=== PATIENT | female | born 1955 | race Caucasian/White ===

== ENCOUNTER → 2020-04-18 13:48 | Outpatient (BNVA) | payer MEDICARE, SELFPAY | PROVIDERS: Family Provider Registered Nurse; Visit Provider Registered Nurse | DX: N39.0 Urinary tract infection, site not specified (principal); M48.061 Spinal stenosis, lumbar region without neurogenic claudication | CPT/HCPCS: 81000 ==

== ENCOUNTER → 2020-06-12 22:17 | Outpatient (BNVA) | payer MEDICARE, SELFPAY | PROVIDERS: Family Provider Registered Nurse; Visit Provider Registered Nurse | DX: I10 Essential (primary) hypertension (principal); E78.5 Hyperlipidemia, unspecified | CPT/HCPCS: 81000 ==

== ENCOUNTER → 2020-06-13 09:20 | Outpatient (BNVA) | payer MEDICARE, SELFPAY | PROVIDERS: Family Provider Registered Nurse; Visit Provider Registered Nurse | DX: I10 Essential (primary) hypertension (principal); E78.5 Hyperlipidemia, unspecified | CPT/HCPCS: 80061; 85025 ==

== ENCOUNTER 2020-08-11 07:06 | Outpatient (CLI) | payer MEDICARE, SELFPAY ==
--- NOTE | 2020-08-11 07:25 | ECG_ITS ---
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 Interpretive Statements NAME OF STUDY: EXERCISE SESTAMIBI STRESS TEST INDICATION: Chest Pain Baseline blood pressure of 168/73 mm Hg, heart rate of 60 beats per minute and oxygen saturation 99%. EKG showed normal sinus rhythm, normal axis with nonspecific ST-T wave changes. Artifact noted The patient exercised for 6 minutes on a standard Irwin protocol. Patient attained a maximum heart rate of 139 beats per minute(90% of the maximum predicted heart rate) with a blood pressure at the peak exercise of 201/101 mm Hg. The EKG at the peak exercise is uninterpretable due to significant artifact. Patient did not have any chest pain or any significant arrhythmis with the exercise. Study was terminated due to fatigue During the recovery phase, there were no new changes. Blood pressure law to 235/66 mmHg early in recovery. Blood pressure at the end of the recovery phase was 151/64 mm Hg with a heart rate of 68 per minute and oxygen saturation 97%. CONCLUSION: 1. Uninterpretable EKG to treadmill exercise due to significant artifact. 2. No exercise-induced chest pain or cardiac arrhythmia 3. Exercise tolerance, attained a maximum of 7 METs. Maximum VO2 of 24.5 mL/kg/min. 4. Baseline hypertension with normal response to exercise. 5. Perfusion scan will be documented separately. Electronically Signed On 08-13-2020 10:32:21 CDT by Ana Laura Mcginnis M.D. [id number]
--- NOTE | 2020-08-11 07:26 | NMCV_ITS ---
NM vincenzo perf SPECT r/s* [id number] Vi Patterson Age: 65 Gender: F : 1955 Exam Date: 08/11/2020 08:32 Ordering Phys: Ana Laura Mcginnis MD ([email or web address]) Technologist: DAY Pena Exam Location: [facility] Indications: SHORTNESS OF BREATH STRESS TEST Please [facility] IMAGE PROTOCOL Rest/Stress 1 Exercise Day Radiopharmaceutical Dose (mCi) Administration Site Administered by Rest: Tc-99m 10.8 IV DAY You Sestamibi Stress:Tc-99m 32.6 IV DAY You Sestamibi Rest: 11-Aug-2020 60 Discovery 630 Stress: 11-Aug-2020 15 Discovery 630 Radiopharmaceutical was injected at 85 % maximum heart rate. Images obtained in supine and prone position. SPECT RESULTS Technical Quality: Excellent Raw Data Analysis: Normal Image Corrections: No attenuation or motion correction applied Summed Stress Score: 4 Summed Rest Score: 3 Summed Difference Score: 2 PERFUSION FINDINGS Small size perfusion abnormality of mild severity of apical septal, apical inferior and apical john on rest and supine stress images. There was improved tracer uptake on prone stress images. This is suggestive of attenuation artifact. FUNCTIONAL RESULTS (calculated via Gated SPECT) Stress Image LV EF (%): 67 Stress EDV (mL):101 TID: 0.94 Stress ESV (mL):33 FUNCTIONAL FINDINGS: The left ventricle is normal in size. Transient Ischemia Dilatation of 0.94. There is normal left ventricular systolic function. The left ventricular ejection fraction is normal with a value of 67%. There is normal left ventricular wall thickening. Normal end-diastolic and end-systolic volume. IMPRESSIONS 1. Myocardial perfusion imaging is normal. Attenuation artifact noted in apical inferior and apical septal john. 2. Overall left ventricular systolic function is normal without regional wall motion abnormalities. 3. The left ventricular ejection fraction is normal with a value of 67%. 4. No coronary ischemia based on the study. 5. EKG portion of the study would be reported separately. Ana Laura Mcginnis MD (Electronically Signed) Final Date: 13 August 2020 17:41 S
[2020-08-11 07:27] VITALS: BMI 26.6
[2020-08-11 09:57] VITALS: BP 151/64; PULSE 69
== END 2020-08-11 07:07 | disposition home or self-care (01) ==
PROVIDERS: PCP Registered Nurse; Visit Provider Internal Medicine Cardiovascular Disease
DX: R06.02 Shortness of breath (principal); R07.9 Chest pain, unspecified
CPT/HCPCS: 78452; 93017; A9500

== ENCOUNTER → 2020-08-19 10:02 | Outpatient (BNVA) | payer MEDICARE, SELFPAY | PROVIDERS: Family Provider Registered Nurse; PCP Registered Nurse; Visit Provider Psychiatry & Neurology Psychiatry | DX: F33.2 Major depressive disorder, recurrent severe without psychotic features (principal) | CPT/HCPCS: 90792 ==

== ENCOUNTER → 2020-09-18 11:37 | Outpatient (BNVA) | payer MEDICARE, SELFPAY | PROVIDERS: Family Provider Registered Nurse; PCP Registered Nurse; Visit Provider Psychiatry & Neurology Psychiatry | DX: F33.1 Major depressive disorder, recurrent, moderate (principal) | CPT/HCPCS: 99214 ==

== ENCOUNTER → 2020-09-23 11:48 | Outpatient (BNVA) | payer MEDICARE, SELFPAY | PROVIDERS: Family Provider Registered Nurse; PCP Registered Nurse; Visit Provider Internal Medicine Cardiovascular Disease | DX: I10 Essential (primary) hypertension (principal); E78.5 Hyperlipidemia, unspecified | CPT/HCPCS: 80053; 80061; 83721 ==

== ENCOUNTER → 2020-10-06 11:40 | Outpatient (BNVA) | payer MEDICARE, SELFPAY | PROVIDERS: Family Provider Registered Nurse; PCP Registered Nurse; Visit Provider Registered Nurse | DX: R30.0 Dysuria (principal) | CPT/HCPCS: 80053; 81000 ==

== ENCOUNTER 2020-11-17 16:29 | Emergency (ER) | payer MEDICARE, SELFPAY ==
[2020-11-17 17:08] VITALS: BP 152/72; PULSE 73; RESP 14; TEMP 37; O2SAT 97; BMI 26.6
--- NOTE | 2020-11-17 17:47 | W.ED.EXTPRO ---
HPI - Extremity Problem General: Chief complaint: Extremity Problem,Nontraumatic Stated complaint: SCIATIC PAIN Time Seen by Provider: 11/17/20 17:39 Source: patient Mode of arrival: ambulatory Limitations: no limitations History of Present Illness: HPI Narrative: 65-year-old female patient presents to the emergency department with right side sciatica pain. She reports symptoms similar to that she has experienced in the past. She reports radiculopathy symptoms. Denies weakness of the right lower extremity. States has completed physical therapy in the past along with neurosurgical consult. Was advised she would need surgery but is trying to hold off as long as she can. She is requesting a steroid injection today to help with pain. Has appointment with her primary care next week for follow-up. Onset (ago): day(s) (2-3) Pain Consistency: intermittent Location: right and lower extremity Quality: burning, aching and dull Radiation: distal Relieving factors: medication (Gabapentin) and rest Exacerbating factors: weight bearing, walking and exertion Associated symptoms: Reports no associated symptoms; Deny chest pain, fever(s) or rash Review of Systems General: Reports: 10 or more systems reviewed and unremarkable except in HPI and below Const: Denies: fever(s), chills or diaphoresis Eyes: Denies: blurry vision or eye redness ENMT: Denies: throat pain, dental pain or disequilibrium Card: Denies: chest pain, palpitations or irregular heart rhythm Resp: Denies: dyspnea, productive cough, non-productive cough or wheezing GI: Denies: abdominal pain, nausea or vomiting : Denies: difficulty voiding or dysuria Musc: Reports: back pain and extremity pain (radiculopathy RLE); Denies: neck pain, joint pain, joint warmth, muscle cramps or muscle weakness Skin/Breast: Denies: rash or pruritus Neuro: Denies: headache(s), weakness in extremities or behavioral changes Psych: Denies: anxiety or depression Alvin/Lymph: Denies: easy bruising [facility] ED PFSH: Medical History (Updated 11/17/20 @ 17:51 by ADIS Mccarthy) Anxiety disorder, unspecified Essential hypertension Intervertebral disc disorder with radiculopathy of lumbosacral region MDD (major depressive disorder) Surgical History History of arthroscopy of right shoulder Family History Other CAD (coronary artery disease) Myocardial infarction Social History Smoking and tobacco status: never smoked Second hand smoke exposure: Yes Alcohol intake: never Adopted: No Caregiver/support person: No Lives independently: Yes Marital status: Sexually active: Yes Current gender identity: Female Physical Exam Const: COMMON NORMALS: no acute distress, patient oriented x3, healthy appearing and alert GENERAL APPEARANCE: cooperative, comfortable and well hydrated HENMT: COMMON NORMALS: normocephalic, Normal external nose present and moist oral mucous membranes HEAD & SCALP: normocephalic NOSE: Normal external nose present Eye: COMMON NORMALS: Equal, round and reactive pupils present and EOMs intact bilaterally GENERAL EYE: appearance normal, both eyes and all related structures PUPIL: Yes Equal, round and reactive pupils present Neck/C-Spine: COMMON NORMALS: full ROM, no lymphadenopathy and no meningeal signs GENERAL: Yes normal visual inspection and Yes trachea midline CERVICAL SPINE: Yes cervical ROM normal Lymph: LYMPHATIC: no lymphadenopathy noted Chest: COMMONS NORMALS: normal inspection of the chest Resp: COMMON NORMALS: normal respiratory effort and clear to auscultation bilaterally AUSCULTATION: clear to auscultation bilaterally Cardio: COMMON NORMALS: regular rhythm, S1 normal heart sound present and S2 normal heart sound present RHYTHM: regular rhythm HEART SOUNDS: S1 normal heart sound present and S2 normal heart sound present GI: COMMON NORMALS: Soft to palpation and non-tender INSPECTION: Yes normal to inspection PALPATION: Yes Soft to palpation : COMMON NORMALS: Yes no CVA tenderness BLADDER/KIDNEY EXAM: Yes no CVA tenderness Back/Pelvis: COMMON NORMALS: no CVA tenderness, thoracic and lumbar spine normal to inspection and no thoracic nor lumbar tenderness THORACIC SPINE/UPPER BACK: Yes normal to inspection and Yes thoracic ROM normal LUMBAR SPINE/LOWER BACK: Yes normal to inspection, Yes lumbar ROM normal and Yes straight leg raise positive right PELVIS: Yes sciatic notch tenderness on the right SACROILIAC JOINTS: Yes SI joint(s) abnormal SI joint details: tender to palpation and pain elicited by compression of iliac crest maneuver (rt) Extremity: COMMON NORMALS: normal to inspection and capillary refill normal Neuro: COMMON NORMALS: patient oriented x3 and no focal motor deficits SENSORIUM/ORIENTATION: Yes alert MENINGEAL SIGNS: Yes no meningeal signs SPEECH: speech normal GAIT: Yes Normal gait present MOTOR EXAM: 5/5 motor strength present throughout Psych: COMMON NORMALS: mental status grossly normal, Normal thought process present and cooperative ACTIVITY/MOTOR BEHAVIOR: Yes appropriate eye contact THOUGHT PROCESS: Normal thought process present Skin: COMMON NORMALS: no rashes or lesions noted and turgor normal GENERAL SKIN EXAM: no rashes or lesions noted and turgor normal Course Vital Signs: Vital signs: Vital Signs Temperature 98.6 F 11/17/20 17:08 Pulse Rate 68 11/17/20 18:24 Respiratory Rate 14 11/17/20 18:24 Blood Pressure 137/71 11/17/20 18:24 Pulse Oximetry 97 11/17/20 18:24 Discharge Plan Discharge Patient Disposition: Home Clinical Impression: Sciatic leg pain, Radicular pain of right lower extremity Condition: Stable Prescriptions: New prednisone 20 mg tablet 20 mg PO BID 5 Days Qty: 10 RF: 0 Zanaflex 2 mg capsule 2 mg PO Q8H PRN (Reason: muscle spasticity) Qty: 10 RF: 0 No Action venlafaxine 75 mg capsule,extended release 24hr 75 mg PO QAM 30 Days Qty: 30 RF: 3 gabapentin 100 mg capsule 100 mg PO TID PRNRF: 0 lisinopril 10 mg tablet 20 mg .ROUTE .COMPLEX RF: 0 citalopram 40 mg tablet 40 mg PO DAILY Qty: 7 RF: 0 amlodipine [Norvasc] 5 mg tablet 5 mg PO DAILY Qty: 90 RF: 0 esomeprazole magnesium 20 mg capsule,delayed release(DR/EC) See Rx Instructions .ROUTE .COMPLEX Qty: 90 RF: 0 rosuvastatin 10 mg tablet See Rx Instructions .ROUTE .COMPLEX Qty: 90 RF: 0 Discharge Orders: Discharge ED (Routine); Ordered 11/17/20 Ordered By: Delia Mayen Referrals: Angeles Greenwood, MANAGER EMERGENCY [Primary Care Provider] - Discharge Diet: Usual diet Discharge Activity: Limit activity as instructed Patient Instructions: Sciatica (ED), Lumbar Radiculopathy (ED) Activity Restrictions/Additional Instructions: Return to the emergency department if you develop inability to feel your right leg, weakness of the right leg, near falls due to right leg numbness, development of urinary or bladder incontinence Continue with exercises as recommended by physical therapy Take prednisone with food Continue follow-up with your primary care provider as scheduled Take tizanidine with caution, could cause drowsiness, do not drive or operate machinery with medication. 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
[2020-11-17 18:24] VITALS: BP 137/71; PULSE 68; RESP 14; O2SAT 97
== END 2020-11-17 18:24 | disposition home or self-care (01) ==
PROVIDERS: Emergency Provider Nurse Practitioner Family; PCP Registered Nurse
DX: M54.31 Sciatica, right side (principal); M54.10 Radiculopathy, site unspecified; I10 Essential (primary) hypertension; Z77.22 Contact with and (suspected) exposure to environmental tobacco smoke (acute) (chronic)
CPT/HCPCS: 12345; 99281

== ENCOUNTER 2020-12-09 12:36 | Outpatient (CLI) | payer MEDICARE, SELFPAY ==
--- NOTE | 2020-12-09 12:42 | MR_ITS ---
WS: [id number] MRI LUMBAR SPINE NONCONTRAST HISTORY: M51.17 - Intervertebral disc disorders with radiculopathy, lumbosacral region COMPARISON: 12/30/2017 TECHNIQUE: Sagittal and axial multisequence imaging is submitted. Patient has a known transitional L6 vertebral body. This numbering pattern has been previously utiliz ed. Normal lumbar alignment with no compression fractures or marrow edema. Disc spaces and vertebral body heights are well-preserved. Conus terminates normally at L1-2 disc level. L1-L2: Normal. L2-L3: Normal. L3-L4: Mild ligamentum flavum hypertrophy. No stenosis. There is mild encroachment and narrowing of t he foramen. L4-L5: Mild annular disc bulging with a central disc protrusion and annular fissure. Mild facet joint arthritis and ligamentum flavum hypertrophy. Mild central and subarticular recess narrowing. Similar to the prior study. L5- L6: Diffuse annular disc bulging with moderate central disc protrusion. There is complete effacem ent of CSF in the subarticular recess. Moderate facet joint arthritis. Moderate central and bilateral lateral recesses and mild bilateral foraminal stenosis. L6-S1: Asymmetric disc bulging to the RIGHT. Moderate facet joint arthritis on the RIGHT. Suspect pse udoarticulation between L6 and S1. There is significant narrowing of the L6-S1 lateral recess and for amen with encroachment upon the S1 nerve root. Similar to the prior study. Focal scar lower pole LEFT kidney. MR/MR lumbar spine wo con* [id number] IMPRESSION: 1. Moderate central and bilateral subarticular recess stenosis and mild forami nal stenosis at L5-L6. Similar to the prior study with no progression. 2. Moderate RIGHT lateral recess and foraminal stenosis at L6-S1. Predominantl y due to hypertrophic bone formation. Similar to the prior study. 3. Mild central and subarticular recess narrowing at L4-5.
== END 2020-12-09 12:37 | disposition home or self-care (01) ==
LOC: RADWPI 12:39
PROVIDERS: PCP Registered Nurse; Visit Provider Registered Nurse
DX: M51.17 Intervertebral disc disorders with radiculopathy, lumbosacral region (principal); M48.061 Spinal stenosis, lumbar region without neurogenic claudication; M48.07 Spinal stenosis, lumbosacral region
CPT/HCPCS: 72148

== ENCOUNTER → 2020-12-23 11:30 | Outpatient (BNVA) | payer MEDICARE, SELFPAY | PROVIDERS: Family Provider Registered Nurse; PCP Registered Nurse; Visit Provider Psychiatry & Neurology Psychiatry | DX: F41.9 Anxiety disorder, unspecified (principal); F32.9 Major depressive disorder, single episode, unspecified; F33.1 Major depressive disorder, recurrent, moderate | CPT/HCPCS: 99214 ==

== ENCOUNTER → 2021-01-20 11:19 | Outpatient (BNVA) | payer MEDICARE, SELFPAY | PROVIDERS: Family Provider Registered Nurse; PCP Registered Nurse; Visit Provider Psychiatry & Neurology Psychiatry | DX: F33.1 Major depressive disorder, recurrent, moderate (principal) | CPT/HCPCS: 99214 ==

== ENCOUNTER 2021-02-05 08:36 | Outpatient (CLI) | payer MEDICARE, SELFPAY ==
--- NOTE | 2021-02-05 08:42 | MM_ITS ---
WS: [id number] BILATERAL SCREENING DIGITAL MAMMOGRAM WITH CAD HISTORY: SCREENING COMPARISON: 09/26/2019, 01/22/2015 Bilateral CC and MLO views submitted. Computer aided detection analyzed. Breast composition: There are scattered areas of fibroglandular density. No suspicious masses, microc alcifications or architectural distortion. MM/[place] [id number] IMPRESSION: BI-RADS: 1-Negative FOLLOW UP: 1 Year Follow-up
== END 2021-02-05 08:37 | disposition home or self-care (01) ==
LOC: RADSHAW 08:38
PROVIDERS: PCP Registered Nurse; Visit Provider Registered Nurse
DX: Z12.31 Encounter for screening mammogram for malignant neoplasm of breast (principal)
CPT/HCPCS: 77067

== ENCOUNTER 2021-09-29 11:01 | Outpatient (CLI) | payer MEDICARE, SELFPAY ==
--- NOTE | 2021-09-29 11:07 | XRR_ITS ---
PROCEDURE INFORMATION: Exam: XR Left Shoulder Exam date and time: 09/29/2021 11:07 AM Age: 66 years old Clinical indication: Patient HX: Patient has an extra lumbar vertebra. This is now causing a pinched nerve in her back, upcoming decompression surgery to relieve, having pain in left shoulder and right hip. ; Additional info: M25.512 - pain in left shoulder TECHNIQUE: Imaging protocol: XR Left shoulder. Views: 2 or more views. COMPARISON: MRI Shoulder w/o LEFT* [id number] 11/15/2018 5:49 PM FINDINGS: Bones/joints: Mild acromioclavicular joint osteoarthritis. Soft tissues: Normal. XR/XR shoulder LT min 2V* [id number] IMPRESSION: Mild acromioclavicular joint osteoarthritis. Radiation Dose CTDIVOL = (mGy): DLP = (mGy-cm)
--- NOTE | 2021-09-29 11:07 | XRR_ITS ---
PROCEDURE INFORMATION: Exam: XR Right Hip Exam date and time: 09/29/2021 11:07 AM Age: 66 years old Clinical indication: Hip pain; Patient HX: Patient has an extra lumbar vertebra. This is now causing a pinched nerve in her back, upcoming decompression surgery to relieve, having pain in left shoulder and right hip. ; Additional info: M25.551 - pain in right hip TECHNIQUE: Imaging protocol: XR Right hip. Views: 1 view hip with pelvis when performed. COMPARISON: CR Sacroiliac Joints [id number] 10/24/2017 9:18 PM FINDINGS: Bones/joints: Unremarkable. No acute fracture. Soft tissues: Unremarkable. XR/XR hip RT 2-3V wo/w pel* [id number] IMPRESSION: No acute findings. Radiation Dose CTDIVOL = (mGy): DLP = (mGy-cm)
== END 2021-09-29 11:02 | disposition home or self-care (01) ==
LOC: RAD 11:05
PROVIDERS: PCP Registered Nurse; Visit Provider Registered Nurse
DX: M25.551 Pain in right hip (principal); M19.012 Primary osteoarthritis, left shoulder
CPT/HCPCS: 73030; 73502

== ENCOUNTER → 2022-06-18 11:31 | Outpatient (BNVA) | payer OTHER, SELFPAY | PROVIDERS: PCP Registered Nurse; Visit Provider Registered Nurse | DX: I10 Essential (primary) hypertension (principal); E78.5 Hyperlipidemia, unspecified | CPT/HCPCS: 80053; 80061; 84443; 85025 ==

== ENCOUNTER 2022-06-23 12:08 | Outpatient (CLI) | payer MEDICARE, SELFPAY ==
--- NOTE | 2022-06-23 12:22 | MM_ITS ---
WS: [id number] Exam: [id number] Date/Time of Exam: 06/23/2022 12:23 PM Reason For Exam: Z12.31 - Encounter for screening mammogram for malignant ... VIEWS: MLO and CC views both breasts. 3D digital tomosynthesis is also included in this exam. Comparison made with prior exam of 06/04/2010, 05/10/2012, 12/07/2013, 01/22/2015, 09/26/2019, 02/05/2021.. Findings: There was no sign of mass, architectural distortion or suspicious calcification in either breast. Sc attered fibroglandular densities MM/[place] [id number] Impression: BI-RADS: 2-Benign FOLLOW-UP: 1 Year Follow-up This mammogram was also analyzed by the Computer Aided Detection System [employer].
== END 2022-06-23 12:09 | disposition home or self-care (01) ==
PROVIDERS: PCP Registered Nurse; Visit Provider Registered Nurse
DX: Z12.31 Encounter for screening mammogram for malignant neoplasm of breast (principal)
CPT/HCPCS: 77063; 77067

== ENCOUNTER 2022-07-09 14:48 | Outpatient (CLI) | payer MEDICARE, SELFPAY ==
--- NOTE | 2022-07-09 15:00 | XR_ITS ---
WS: [id number] DEXA (DUAL ENERGY X-RAY ABSORPTIOMETRY) Bone mineral density was performed using a Helveta machine. HISTORY: Z78.0 - Asymptomatic menopausal state COMPARISON: 09/26/2019 Lumbar spine BMD (L1-L4): 1.057 g/cm2 T score: -1.0 Z score: 0.2 Total hip BMD: Left: 0.984 g/cm2. T score: -0.2 Z score: 0.9 Right: 0.922 g/cm2. T score: -0.7 Z score: 0.4 10 year probability of a major osteoporotic fracture is 9.6%. Compared to the prior study from 09/26/2019. Lumbar spine bone mineral density has decreased by 5.2%. Bilateral hips bone mineral density has decrease by 2.4%. XR/XR DEXA axial skeleton* [id number] IMPRESSION: Normal bone mineral density based upon the WHO classification for females. Significant decrease in bone mineral density within the spine and hips since e prior study.
== END 2022-07-09 14:49 | disposition home or self-care (01) ==
LOC: RAD 14:48
PROVIDERS: PCP Registered Nurse; Visit Provider Registered Nurse
DX: Z78.0 Asymptomatic menopausal state (principal)
CPT/HCPCS: 77080

== ENCOUNTER → 2022-07-14 13:43 | Outpatient (BNVA) | payer MEDICARE, SELFPAY | PROVIDERS: PCP Registered Nurse; Visit Provider Surgery | DX: Z12.11 Encounter for screening for malignant neoplasm of colon (principal); Z80.0 Family history of malignant neoplasm of digestive organs | CPT/HCPCS: 99203 ==

== ENCOUNTER 2022-08-13 06:05 | Day surgery (SDC) | payer MEDICARE, SELFPAY ==
[2022-08-12 09:59] VITALS: BMI 26.6
--- NOTE | 2022-08-13 06:27 | W.PM.OPSUD ---
Surgery/Procedure H&P Update DATE OF PROCEDURE: August 13, 2022 DATE H&P PERFORMED: 07/14/22 H&P UPDATE INFORMATION: I have reviewed H&P completed within last 30 days, I have examined patient prior to procedure and No changes to prior documentation PREOP DIAGNOSIS: Family history of colon cancer PRIMARY INDICATION FOR PROCEDURE: The same PLANNED PROCEDURE: Operation Date: 08/13/22 07:30 Proposed Procedures p Colonoscopy [id number],Z12.11(Not Applicable) - Markus Hale MD
[2022-08-13 06:45] VITALS: BP 154/71; PULSE 65; RESP 18; TEMP 36.4; O2SAT 96
[2022-08-13] MEDS: sodium chloride 0.9% 1,000 ML 30 ML IV (06:53)
--- NOTE | 2022-08-13 07:03 | ANES.PREANE2 ---
Pre-Anesthetic Assessment Height/Weight: Height 1.68 m Weight 74.843 kg Temp Pulse Resp BP Pulse Ox O2 Del Method 97.5 F L 65 18 154/71 96 08/13/22 06:45 08/13/22 06:45 08/13/22 06:45 08/13/22 06:45 08/13/22 06:45 08/13/22 06:45 Preop Diagnosis: Family history of colon cancer Operation Date: 08/13/22 07:30 Proposed Procedures p Colonoscopy 40232,Z12.11(Not Applicable) - Markus Hale MD Familial anesthetic complications: none Was Beta Rod taken within 24 hours: N/A Was Clonidine taken within 24 hours: N/A Last intake: Intake Last Liquid Date 08/12/22 Last Liquid Time 22:00 Last Solid Date 08/11/22 Last Solid Time 19:00 Last Intake: 22:00 Social No alcohol and No tobacco Exam alert, oriented x 3, clear to auscultation bilaterally and regular rate & rhythm Airway Submandibular: within normal limits Cervical ROM: within normal limits Mallampati: Class II Dentition: false (upper) Pulmonary None reported CV/HEM Hypertension None reported Hepatic None reported GI Gastroesophageal Reflux Disease (controlled) Metabolic None reported Musc/skel Lower Back Pain and Osteoarthritis/DJD Neuropsych Anxiety and Depression Anesthetic Plan ASA status: 2 Anesthesia: MAC Risk of > 500 ml blood loss (7ml/kg in children): No Medications/Allergies Home Medications Medication Instructions Recorded Confirmed Last Taken Type alendronate 70 mg tablet 70 mg PO .weekly 90 days #12 tabs 07/29/22 08/13/22 08/06/22 Rx gabapentin 300 mg capsule 300 mg PO TID PRN Pain 07/29/22 08/12/22 Unknown History venlafaxine 75 mg capsule,extended 75 mg PO QAM 90 days #90 caps 07/29/22 08/12/22 08/12/22 Rx release 24 hr amlodipine 10 mg tablet 10 mg PO DAILY 08/12/22 08/12/22 08/12/22 History esomeprazole magnesium 20 mg 20 mg PO DAILY 08/12/22 08/12/22 08/12/22 History capsule,delayed release lisinopril 20 mg tablet 20 mg PO DAILY 08/12/22 08/12/22 08/12/22 History rosuvastatin 10 mg tablet 10 mg PO DAILY 08/12/22 08/12/22 08/12/22 History Allergies Allergy/AdvReac Type Severity Reaction Status Date / Time No Known Allergies Allergy Verified 08/12/22 09:54 Current Medications Generic Name Dose Route Start Last Admin Trade Name Dakotaq PRN Reason Stop Dose Admin Sodium Chloride 1,000 mls @ 30 mls/hr 08/13/22 06:15 08/13/22 06:53 Sodium Chloride 0.9% IV 08/14/22 06:14 30 mls/hr .Q24H ESDRAS Administration PFSH Anesthesia Medical History Anxiety disorder, unspecified Degenerative lumbar spinal stenosis Essential hypertension Intervertebral disc disorder with radiculopathy of lumbosacral region MDD (major depressive disorder) Post-menopausal Psychiatric care Transitional vertebrae Surgical History History of arthroscopy of right shoulder Family History Other CAD (coronary artery disease) Myocardial infarction Social History Smoking and tobacco status: never smoked Second hand smoke exposure: Yes Alcohol intake: never Adopted: No Caregiver/support person: No Lives independently: Yes Marital status: Sexually active: Yes Current gender identity: Female Data Anesthesia Cardiac Studies: Sestamibi Stress Test (Cardiology) 08/11/20
[2022-08-13 08:10] VITALS: BP 131/68; PULSE 71; RESP 14; TEMP 36.1; O2SAT 100
[2022-08-13 08:25] VITALS: BP 151/75; PULSE 66; RESP 18; O2SAT 99
--- NOTE | 2022-08-13 08:49 | PC.NURSE ---
Per Dr. Hale request, formalin container sent home with patient to preserve specimen should it be retrieved. Patient and significant other educated about precautions to use when handling formalin. Hat, strainer, formalin cup, and tongue despresser sent home with patient at this time.
--- NOTE | 2022-08-13 13:43 | ANE.PACU2 ---
Inpatient post-anesthesia follow up: Airway intact: Yes Vital signs: Temperature 97.0 F Pulse Rate 66 Respiratory Rate 18 Blood Pressure 151/75 Pulse Oximetry 99 Oxygen Delivery Me thod Room Air Oxygen Flow Rate Fraction of Inspir ed Oxygen Hydration adequate: Yes Nausea and vomiting: No Pain level: 1 Mental status: Baseline
== END 2022-08-13 08:45 | disposition home or self-care (01) ==
PROVIDERS: PCP Registered Nurse; Visit Provider Surgery
PROC: 0DJD8ZZ Inspection of Lower Intestinal Tract, Via Natural or Artificial Opening Endoscopic (ICD-10-PCS; CPT 45378; principal; 2022-08-13 07:30)
DX: Z12.11 Encounter for screening for malignant neoplasm of colon (principal); Z80.0 Family history of malignant neoplasm of digestive organs; D12.3 Benign neoplasm of transverse colon; I10 Essential (primary) hypertension; K21.9 Gastro-esophageal reflux disease without esophagitis
CPT/HCPCS: 45385; J2704; J7030

== ENCOUNTER → 2022-08-25 15:54 | Outpatient (BNVA) | payer MEDICARE, SELFPAY | PROVIDERS: PCP Registered Nurse; Visit Provider Surgery | DX: Z09 Encounter for follow-up examination after completed treatment for conditions other than malignant neoplasm (principal); K63.5 Polyp of colon | CPT/HCPCS: 99212 ==

== ENCOUNTER → 2022-11-15 14:03 | Outpatient (BNVA) | payer MEDICARE, SELFPAY | PROVIDERS: PCP Registered Nurse; Visit Provider Registered Nurse | DX: R05.9 Cough, unspecified (principal) | CPT/HCPCS: 87400 ==

== ENCOUNTER → 2023-06-19 18:36 | Outpatient (BNVA) | payer MEDICARE, SELFPAY | PROVIDERS: PCP Registered Nurse; Visit Provider Registered Nurse Neonatal Intensive Care | DX: R30.0 Dysuria (principal); N39.0 Urinary tract infection, site not specified | CPT/HCPCS: 81000; 87077; 87086; 87184 ==

== ENCOUNTER → 2023-07-19 10:41 | Outpatient (BNVA) | payer MEDICARE, SELFPAY | PROVIDERS: PCP Registered Nurse; Visit Provider Registered Nurse | DX: R73.09 Other abnormal glucose (principal) | CPT/HCPCS: 83036 ==

== ENCOUNTER → 2023-07-19 11:45 | Outpatient (BNVA) | payer MEDICARE, SELFPAY | PROVIDERS: PCP Registered Nurse; Visit Provider Registered Nurse | DX: Z00.00 Encounter for general adult medical examination without abnormal findings (principal); E78.5 Hyperlipidemia, unspecified | CPT/HCPCS: 80053; 80061; 85025 ==

== ENCOUNTER 2023-07-29 05:04 | Emergency (ER) | payer MEDICARE, SELFPAY ==
[2023-07-29] VITALS (12 sets, daily range): BP systolic 126–167; BP diastolic 49–71; PULSE 70–85; RESP 16–20; TEMP 37.1; O2SAT 94–99; BMI 27.1
[2023-07-29] MEDS: promethazine 25 mg/mL SDV 1 mL IM (06:08)
--- NOTE | 2023-07-29 06:11 | W.ED.NAVMDI ---
HPI - Nausea/Vomiting/Diarrhea General: Chief complaint: Nausea/Vomiting/Diarrhea Stated complaint: Nausea/vomiting Time Seen by Provider: 07/29/23 05:43 Source: patient Mode of arrival: ambulatory History of Present Illness: 68-year-old female presents emergency room with nausea and vomiting. Began yesterday. She had recently started Trulicity for her diabetes 2 days ago was her first dose the following day the nausea began. She has not been able to keep anything down she has not had any fever sweats chills denies hematochezia melena hematemesis coffee-ground emesis. No dysuria urgency or frequency no focal abdominal pain. MD elicited complaint: nausea and vomiting Onset (ago): day(s) (2) Description of vomiting: bilious Associated nausea: Yes Associated abdominal pain: No Location of pain: None Exacerbating factors: eating Relieving factors: none Associated symtoms: Reports nausea; Denies altered mental status, anxiety, bloating, chest pain, cough, diaphoresis, decreased urine output, dizziness, dysuria, fatigue, fecal incontinence, fevers/chills, headache(s), anorexia, malaise, myalgias, numbness, palpitations, rash, short of breath, syncope, tenesmus or weakness Review of Systems Const: Denies: fever(s), chills, fatigue, malaise or diaphoresis Card: Denies: chest pain, palpitations or syncope Resp: Denies: dyspnea, productive cough or non-productive cough GI: Reports: nausea and vomiting; Denies: abdominal pain, hematemesis, coffee ground emesis, bloating, fecal incontinence, hematochezia or melena : Denies: dysuria, urinary frequency or urinary urgency Skin/Breast: Denies: rash or pruritus Neuro: Denies: headache(s) or dizziness Psych: Denies: anxiety PFSH ED PFSH: Medical History Anxiety disorder, unspecified Degenerative lumbar spinal stenosis Essential hypertension Intervertebral disc disorder with radiculopathy of lumbosacral region MDD (major depressive disorder) Post-menopausal Psychiatric care Transitional vertebrae Surgical History History of arthroscopy of right shoulder Family History Other CAD (coronary artery disease) Myocardial infarction Social History Smoking and tobacco status: never smoked Second hand smoke exposure: Yes Alcohol intake: never Substance/Drug Use: never Adopted: No Caregiver/support person: No Lives independently: Yes Marital status: Sexually active: Yes Do you think of yourself as: Straight/Heterosexual Current gender identity: Female Physical Exam Const: EXAM LIMITATIONS: no altered mental status GENERAL APPEARANCE: cooperative ORIENTATION/CONSCIOUSNESS: Yes awake, Yes oriented to person, Yes oriented to place and Yes oriented to time HENMT: COMMON NORMALS: normocephalic, atraumatic and hearing grossly normal bilaterally HEAD & SCALP: normocephalic and atraumatic Resp: COMMON NORMALS: normal respiratory effort, No retractions, No use of accessory muscles and clear to auscultation bilaterally AUSCULTATION: clear to auscultation bilaterally Cardio: COMMON NORMALS: regular rate, regular rhythm and No murmurs present (Cardio) RATE: regular rate RHYTHM: regular rhythm GI: COMMON NORMALS: Soft to palpation and No hepatosplenomegaly present AUSCULTATION: Yes normoactive bowel sounds PALPATION: Yes Soft to palpation, No Tenderness to palpation present (GI), No Guarding due to palpation present (GI) and Yes No hepatosplenomegaly present Extremity: COMMON NORMALS: normal to inspection, capillary refill normal, no clubbing, cyanosis or edema, no calf tenderness and no pedal edema Neuro: SENSORIUM/ORIENTATION: Yes oriented to person, Yes oriented to place and Yes oriented to time Skin: COMMON NORMALS: no rashes or lesions noted GENERAL SKIN EXAM: no rashes or lesions noted Course Vital Signs: Vital signs: Vital Signs Temperature 98.7 F 07/29/23 05:34 Pulse Rate 70 07/29/23 09:22 Respiratory Rate 16 07/29/23 09:22 Blood Pressure 135/55 07/29/23 09:22 Pulse Oximetry 98 07/29/23 09:22 Oxygen Delivery Me thod Room Air 07/29/23 05:34 MDM - Nausea/Vomiting/Diarrhea Medical Decision Making Nausea vomiting secondary to the Trulicity most likely. She is improved with fluids encouraged her to hold off on the Trulicity for now until talking to her primary care doctor discharged home on clear liquid diet ondansetron or promethazine as needed for nausea gave her the dissolving ondansetron so she needs something that she does not have to swallow she will have an option. Follow-up with your primary care doctor return if has worsening of symptoms Medical Records I reviewed the patient's medical records. Lab Data I reviewed the patient's lab results. 07/29/23 06:00 07/29/23 06:00 Laboratory Results WBC 9.64 10^3/uL (3.29-11.43) 07/29/23 06:00 RBC 4.82 10^6/uL (3.85-5.65) 07/29/23 06:00 Hgb 14.30 g/dL (11.27-16.99) 07/29/23 06:00 Hct 41.6 % (36-47) 07/29/23 06:00 MCV 86.3 fl (85-98) 07/29/23 06:00 MCH 29.7 pg (27-33) 07/29/23 06:00 MCHC 34.4 g/dL (30-55) 07/29/23 06:00 RDW 12.3 % (12.1-15.1) 07/29/23 06:00 Plt Count 198 10^3/cmm (157-399) 07/29/23 06:00 MPV 11.2 fL (7.4-10.4) H 07/29/23 06:00 Neut % (Auto) 86.9 % 07/29/23 06:00 Lymph % (Auto) 7.4 % 07/29/23 06:00 Smyth % (Auto) 4.7 % 07/29/23 06:00 Eos % (Auto) 0.1 % 07/29/23 06:00 Baso % (Auto) 0.4 % 07/29/23 06:00 Neut # (Auto) 8.38 10^3/uL (1.8-7.7) H 07/29/23 06:00 Lymph # (Auto) 0.7 10^3/uL (0.8-4.8) L 07/29/23 06:00 Smyth # (Auto) 0.5 10^3/uL (0.2-0.9) 07/29/23 06:00 Eos # (Auto) 0.0 10^3/uL (0.0-0.8) 07/29/23 06:00 Baso # (Auto) 0.0 10^3/uL (0.0-0.1) 07/29/23 06:00 Nucleated RBC % (auto) 0 % 07/29/23 06:00 Nucleated RBCs # 0.0 /100WBC 07/29/23 06:00 Sodium 142 mmol/L (136-145) 07/29/23 06:00 Potassium 3.5 mmol/L (3.5-5.1) 07/29/23 06:00 Chloride 102 mmol/L (98-107) 07/29/23 06:00 Carbon Dioxide 20 mmol/L (22-29) L 07/29/23 06:00 Anion Gap 23.5 (5-19) H 07/29/23 06:00 BUN 20 mg/dL (8-23) 07/29/23 06:00 Creatinine 1.2 mg/dL (0.5-0.9) H 07/29/23 06:00 GFR Calculation 44.5 mL/min (90-130) L 07/29/23 06:00 Glucose 213 mg/dL (65-115) H 07/29/23 06:00 Calculated Osmolality 303 mOsm/kg (285-295) H 07/29/23 06:00 Calcium 10.1 mg/dL (8.5-10.5) 07/29/23 06:00 Total Bilirubin 0.6 mg/dL (0.15-1.2) 07/29/23 06:00 AST 26 U/L (0-32) 07/29/23 06:00 ALT 36 U/L (0-33) H 07/29/23 06:00 Alkaline Phosphatase 107 U/L (35-105) H 07/29/23 06:00 Total Protein 7.5 g/dL (6.6-8.7) 07/29/23 06:00 Albumin 4.9 g/dL (3.5-5.2) 07/29/23 06:00 Globulin 2.6 g/dL (1.3-4.6) 07/29/23 06:00 Discharge Plan Discharge Patient Disposition: Home Clinical Impression: Medication side effect, Nausea and vomiting Condition: Stable Prescriptions: New promethazine 25 mg tablet 25 mg PO Q6H PRN (Reason: nausea and vomiting) Qty: 20 0RF ondansetron 4 mg tablet,disintegrating 4 mg PO Q6H PRN (Reason: nausea and vomiting) Qty: 20 0RF No Action buspirone 5 mg tablet 5 mg PO BID PRN (Reason: anxiety) 30 Days Qty: 45 4RF venlafaxine 75 mg capsule,extended release 24hr 75 mg PO QAM 90 Days Qty: 90 4RF (DME) blood-glucose meter [Accu-Chek Guide Glucose Meter] Misc See Rx Instructions .Route Qty: 1 0RF Rx Instructions: As directed (DME) Accu-Chek Guide test strips Strip See Rx Instructions .Route Qty: 100 0RF Rx Instructions: As directed (DME) lancets [Accu-Chek Fastclix Lancet Drum] Misc See Rx Instructions .Route Qty: 200 0RF Rx Instructions: As directed gabapentin 300 mg capsule 300 mg PO TID PRN (Reason: Pain) albuterol sulfate [ProAir HFA] 90 mcg/actuation HFA aerosol inhaler 2 puff inhalation Q6H PRN (Reason: shortness of breath or wheezing) 30 Days Qty: 8.5 0RF cetirizine [Zyrtec] 10 mg tablet 10 mg PO DAILY PRN (Reason: Allergy Symptoms) fluticasone propionate [Flonase Allergy Relief] 50 mcg/actuation spray,suspension 2 spray intranasal DAILY PRN (Reason: Allergy Symptoms) Rx Instructions: administer into each nostril lisinopril 20 mg tablet 20 mg PO QAM Rx Instructions: MUST MAKE FOLLOW-UP FOR FURTHER REFILLS amlodipine 10 mg tablet 10 mg PO QAM esomeprazole magnesium 20 mg capsule,delayed release(DR/EC) 20 mg PO QAM rosuvastatin 10 mg tablet 10 mg PO QAM Trulicity 0.75 mg/0.5 mL pen injector 0.75 mg SUBCUT Q7D Rx Instructions: on tue Discharge Orders: Discharge ED (Routine); Ordered 07/29/23 Ordered By: Leif Villaseñor Referrals: Angeles Greenwood, PHYSICAL DAMAGE APPRAISER [Primary Care Provider] - Discharge Diet: Clear Liquid Discharge Activity: Increase activity as tolerated Patient Instructions: Opioid Safety, Pain Management Activity Restrictions/Additional Instructions: Follow-up with your primary care doctor before taking any more Trulicity. Suspect the Trulicity is what caused her nausea vomiting. Coding Level of Care Code ED Electrifier Operator for Kike Paul
[2023-07-29 06:12] LABS: Basophils % 0.4 %; Eosinophils % 0.1 %; Hematocrit 41.6 % (36-47); Lymphocytes # 0.7 10^3/uL (0.8-4.8); Lymphocytes % 7.4 %; Mean Corpuscular HGB Conc 34.4 g/dL (30-55); Mean Corpuscular Hemoglobin 29.7 pg (27-33); Mean Corpuscular Volume 86.3 fl (85-98); Mean Platelet Volume 11.2 fL (7.4-10.4); Monocytes # 0.5 10^3/uL (0.2-0.9); Monocytes % 4.7 %; Neutrophils # 8.38 10^3/uL (1.8-7.7); Neutrophils % 86.9 %; Nucleated Red Blood Cells % 0 %; Platelet Count 198 10^3/cmm (157-399); Red Blood Count 4.82 10^6/uL (3.85-5.65); Red Cell Distribution Width 12.3 % (12.1-15.1); White Blood Count 9.64 10^3/uL (3.29-11.43)
[2023-07-29] MEDS: sodium chloride 0.9% 1,000 ML 999 ML IV ×2 (06:26→07:29)
[2023-07-29 06:30] LABS: Alanine Aminotransferase 36 U/L (0-33); Albumin Level 4.9 g/dL (3.5-5.2); Alkaline Phosphatase 107 U/L (35-105); Anion Gap 23.5 (5-19); Aspartate Amino Transferase 26 U/L (0-32); Blood Urea Nitrogen 20 mg/dL (8-23); Calcium 10.1 mg/dL (8.5-10.5); Carbon Dioxide 20 mmol/L (22-29); Chloride 102 mmol/L (98-107); Globulin 2.6 g/dL (1.3-4.6); Glomerular Filtration Rate 44.5 mL/min (90-130); Glucose 213 mg/dL (65-115); Osmolality Calculated 303 mOsm/kg (285-295); Potassium 3.5 mmol/L (3.5-5.1); Sodium 142 mmol/L (136-145); Total Bilirubin 0.6 mg/dL (0.15-1.2); Total Protein 7.5 g/dL (6.6-8.7)
[2023-07-29 06:32] LABS: Creatinine Clr Calc Pharmacy 46.1437
== END 2023-07-29 09:23 | disposition home or self-care (01) ==
PROVIDERS: Emergency Provider Family Medicine; PCP Registered Nurse
DX: R11.2 Nausea with vomiting, unspecified (principal); T50.995A Adverse effect of other drugs, medicaments and biological substances, initial encounter; Z77.22 Contact with and (suspected) exposure to environmental tobacco smoke (acute) (chronic); I10 Essential (primary) hypertension
CPT/HCPCS: 36415; 80053; 85025; 96360; 96361; 96372; 99284; J2550; J7030

== ENCOUNTER 2023-08-15 07:41 | Outpatient (CLI) | payer MEDICARE, SELFPAY ==
--- NOTE | 2023-08-15 07:48 | MM_ITS ---
WS: [id number] BILATERAL SCREENING DIGITAL TOMOSYNTHESIS MAMMOGRAM WITH CAD HISTORY: Z12.39 - Encounter for other screening for malignant neop... COMPARISON: 06/23/2022 and 09/26/2019 Bilateral CC and MLO views with tomosynthesis and synthetic mammography submitted. Computer aided det ection analyzed. Breast composition: There are scattered areas of fibroglandular density. No suspicious masses, microc alcifications or architectural distortion. IMPRESSION: MM/[place] [id number] BI-RADS: 1-Negative FOLLOW UP: 1 Year Follow-up
== END 2023-08-15 07:42 | disposition home or self-care (01) ==
LOC: MOBLMAM 07:47
PROVIDERS: PCP Registered Nurse; Visit Provider Registered Nurse
DX: Z12.31 Encounter for screening mammogram for malignant neoplasm of breast (principal)
CPT/HCPCS: 77063; 77067; 83036; 87624

== ENCOUNTER → 2023-08-23 11:08 | Outpatient (BNVA) | payer MEDICARE, SELFPAY | PROVIDERS: PCP Registered Nurse; Visit Provider Obstetrics & Gynecology | DX: R32 Unspecified urinary incontinence (principal); D25.9 Leiomyoma of uterus, unspecified; N83.8 Other noninflammatory disorders of ovary, fallopian tube and broad ligament | CPT/HCPCS: 76830 ==

== ENCOUNTER → 2023-11-24 13:26 | Outpatient (BNVA) | payer MEDICARE, SELFPAY | PROVIDERS: PCP Registered Nurse; Visit Provider Obstetrics & Gynecology | DX: R93.89 Abnormal findings on diagnostic imaging of other specified body structures (principal); D25.9 Leiomyoma of uterus, unspecified | CPT/HCPCS: 76830 ==

== ENCOUNTER 2023-12-15 09:03 | Day surgery (SDC) | payer MEDICARE, SELFPAY ==
[2023-12-15] VITALS (12 sets, daily range): BP systolic 113–164; BP diastolic 57–95; PULSE 70–84; RESP 12–22; TEMP 36.1–36.5; O2SAT 91–98
--- NOTE | 2023-12-15 08:25 | W.PM.OPSFHP ---
Same Day Surgery H&P Indication for Procedure/HPI DATE OF PROCEDURE: December 15, 2023 CHIEF COMPLAINT/INDICATIONFOR SURGICAL PROCEDURE: abnormal endometrial thickening on pelvic ultrasound PREOP DIAGNOSIS: abnormal endometrial thickening on ultrasound PLANNED PROCEDURE: Operation Date: 12/15/23 10:30 Proposed Procedures p Hysteroscopy, endometrial sampling, possible endometrial polypectomy 99045,R93.89,N84.1(Not Applicable) - Hasmukh Gomez MD s PossPoylpectomy(Not Applicable) - Hasmukh Gomez MD 68 y.o. postmenopausal no bleeding, spotting, or discharge has persistent thickening with cystic change on endometrium as seen on pelvic sono now scheduled for hysteroscopy, endometrial sampling, possible endometrial polypectomy Medications/Allergies* Home Medications Medication Instructions Recorded Confirmed Type gabapentin 300 mg capsule 300 mg PO TID PRN Pain 07/29/22 12/14/23 History cetirizine 10 mg tablet (Zyrtec) 10 mg PO DAILY PRN Allergy Symptoms 04/28/23 12/14/23 History fluticasone propionate 50 2 spray intranasal DAILY PRN 04/28/23 12/14/23 History mcg/actuation nasal Allergy Symptoms spray,suspension (Flonase Allergy Relief) amlodipine 10 mg tablet 10 mg PO QAM 07/29/23 12/14/23 History esomeprazole magnesium 20 mg 20 mg PO QAM 07/29/23 12/14/23 History capsule,delayed release rosuvastatin 10 mg tablet 10 mg PO QAM 07/29/23 12/14/23 History Allergies/Adverse Reactions Allergy/AdvReac Type Severity Reaction Status Date / Time No Known Allergies Allergy Verified 12/14/23 09:20 Pertinent History/Comorbid Conditions* Medical History (Updated 08/15/23 @ 23:01 by Hasmukh Gomez MD) Psychiatric care Post-menopausal Degenerative lumbar spinal stenosis Transitional vertebrae MDD (major depressive disorder) Anxiety disorder, unspecified Essential hypertension Intervertebral disc disorder with radiculopathy of lumbosacral region Surgical History (Updated 07/27/20 @ 18:02 by Ana Laura Mcginnis MD) History of arthroscopy of right shoulder Family History (Updated 08/15/23 @ 09:22 by Gregg Aquino) Colon cancer Mother Sister Ovarian cancer Sister CAD (coronary artery disease) Myocardial infarction Denies family history of Diabetes Hyperlipidemia Hypertension Stroke Social History Smoking and tobacco/nicotine status: never used tobacco/nicotine Second hand smoke exposure: Yes Alcohol intake: never Substance/Drug Use: never Adopted: No Caregiver/support person: No Lives independently: Yes Marital status: Sexually active: Yes Do you think of yourself as: Straight/Heterosexual Current gender identity: Female Pertinent Exam Findings alert, oriented x 3, clear to auscultation bilaterally and regular rate & rhythm Recommendations Surgery/Procedure today Coding Level of Care Code Acute Code for Chg Fwd Time Spent (min) 15
--- NOTE | 2023-12-15 09:54 | W.PM.OPSUD ---
Surgery/Procedure H&P Update DATE OF PROCEDURE: December 15, 2023 DATE H&P PERFORMED: 12/15/23 H&P UPDATE INFORMATION: I have reviewed H&P completed within last 30 days, I have examined patient prior to procedure and No changes to prior documentation PREOP DIAGNOSIS: abnormal endometrial thickening on ultrasound PLANNED PROCEDURE: Operation Date: 12/15/23 10:30 Proposed Procedures p Hysteroscopy, endometrial sampling, possible endometrial polypectomy 01712,R93.89,N84.1(Not Applicable) - Hasmukh Gomez MD s PossPoylpectomy(Not Applicable) - Hasmukh Gomez MD
--- NOTE | 2023-12-15 09:56 | ANES.PREANE2 ---
Pre-Anesthetic Assessment Height/Weight: Height 1.68 m Weight 74.843 kg Temp Pulse Resp BP Pulse Ox O2 Del Method 97 F L 77 16 132/95 98 Room Air 12/15/23 09:28 12/15/23 09:28 12/15/23 09:28 12/15/23 09:28 12/15/23 09:28 12/15/23 09:41 Preop Diagnosis: abnormal endometrial thickening on ultrasound Operation Date: 12/15/23 10:30 Proposed Procedures p Hysteroscopy, endometrial sampling, possible endometrial polypectomy 64421,R93.89,N84.1(Not Applicable) - Hasmukh Gomez MD s PossPoylpectomy(Not Applicable) - Hasmukh Gomez MD Familial anesthetic complications: none Was Beta Rod taken within 24 hours: N/A Was Clonidine taken within 24 hours: N/A Last intake: Intake Last Liquid Date 12/14/23 Last Liquid Time 22:00 Last Solid Date 12/14/23 Last Solid Time 22:00 Social No alcohol and No tobacco Exam alert, oriented x 3, clear to auscultation bilaterally and regular rate & rhythm Airway Mallampati: Class I Dentition: false CV/HEM Hypertension GI Gastroesophageal Reflux Disease Metabolic Hyperlipidemia Anesthetic Plan ASA status: 3 Anesthesia: General Risk of > 500 ml blood loss (7ml/kg in children): No Medications/Allergies Home Medications Medication Instructions Recorded Confirmed Last Taken Type gabapentin 300 mg capsule 300 mg PO TID PRN Pain 07/29/22 12/14/23 Unknown History cetirizine 10 mg tablet (Zyrtec) 10 mg PO DAILY PRN Allergy Symptoms 04/28/23 12/14/23 Unknown History fluticasone propionate 50 2 spray intranasal DAILY PRN 04/28/23 12/14/23 Unknown History mcg/actuation nasal Allergy Symptoms spray,suspension (Flonase Allergy Relief) blood-glucose meter (Accu-Chek #1 ea 07/26/23 11/17/23 Unknown Rx Guide Glucose Meter) lancets (Accu-Chek Fastclix Lancet #200 ea 07/26/23 11/17/23 Unknown Rx Drum) amlodipine 10 mg tablet 10 mg PO QAM 07/29/23 12/14/23 12/14/23 History esomeprazole magnesium 20 mg 20 mg PO QAM 07/29/23 12/14/23 12/14/23 History capsule,delayed release rosuvastatin 10 mg tablet 10 mg PO QAM 07/29/23 12/14/23 12/14/23 History blood sugar diagnostic (Accu-Chek #100 ea 10/18/23 11/17/23 Unknown Rx Guide test strips) empagliflozin 10 mg tablet 10 mg PO DAILY 90 days #90 tabs 10/19/23 12/14/23 12/14/23 Rx (Jardiance) buspirone 5 mg tablet 5 mg PO BID PRN anxiety 30 days 11/17/23 12/14/23 Unknown Rx #45 tabs venlafaxine 75 mg capsule,extended 75 mg PO QAM 90 days #90 caps 11/17/23 12/14/23 12/14/23 Rx release 24 hr lisinopril 30 mg tablet 30 mg PO DAILY 90 days #90 tabs 11/25/23 12/14/23 12/14/23 Rx Allergies Allergy/AdvReac Type Severity Reaction Status Date / Time No Known Allergies Allergy Verified 12/15/23 09:31 [facility] Anesthesia Medical History Anxiety disorder, unspecified Degenerative lumbar spinal stenosis Essential hypertension Intervertebral disc disorder with radiculopathy of lumbosacral region MDD (major depressive disorder) Post-menopausal Psychiatric care Transitional vertebrae Surgical History History of arthroscopy of right shoulder Family History Mother Colon cancer Sister Colon cancer Ovarian cancer Other CAD (coronary artery disease) Myocardial infarction Denies family history of Diabetes Hyperlipidemia Hypertension Stroke Social History Smoking and tobacco/nicotine status: never used tobacco/nicotine Second hand smoke exposure: Yes Alcohol intake: never Substance/Drug Use: never Adopted: No Caregiver/support person: No Lives independently: Yes Marital status: Sexually active: Yes Do you think of yourself as: Straight/Heterosexual Current gender identity: Female Data Anesthesia Cardiac Studies: Sestamibi Stress Test (Cardiology) 08/11/20
[2023-12-15] MEDS: sodium chloride 0.9% 1,000 ML 30 ML IV (09:57)
[2023-12-15 10:01] LABS: Glucose Point of Care 103 mg/dL (70-110)
[2023-12-15] MEDS: scopolamine 1.5 Patch 1 PATCH TRANSDERMA (10:03)
[2023-12-15] MEDS: midazolam 1 mg/mL INJ 2 mL 2 MG IVP (10:03)
--- NOTE | 2023-12-15 12:35 | ANE.PACU2 ---
Inpatient post-anesthesia follow up: Airway intact: Yes Vital signs: Temperature 97.4 F Pulse Rate 75 Respiratory Rate 16 Blood Pressure 146/60 Pulse Oximetry 94 Oxygen Delivery Me thod Room Air Oxygen Flow Rate 6 Fraction of Inspir ed Oxygen Hydration adequate: Yes Nausea and vomiting: No Pain level: 1 Mental status: Baseline
--- NOTE | 2023-12-15 18:06 | P.OP_ITS ---
Operative Report Date of procedure: December 15, 2023 Pre-op diagnosis: abnormal endometrial thickening on pelvic sono Post-op diagnosis: abnormal endometrial thickening on pelvic sono 3 cm irregularly-shaped endometrial polyp moderate endometrial tissue Post-op findings: 3 cm endometrial polyp, irregularly shaped Moderate amount of endometrial tissue Intact endometrial cavity after hysteroscopy Procedure done: Hysteroscopy Endometrial sampling and polypectomy with Myosure Curettage of uterus Implants: none Specimens removed/disposition: endometrial tissue Surgeon: Hasmukh Gomez MD Anesthesia: MAC Estimated blood loss (mL): 0 Complications: none Condition: stable Disposition: PACU Brief History: 68 y.o. with abnormal endometrial thickening found on pelvic sono Procedure: Informed consent signed. Patient was taken to the operating room. Anesthesia was induced. Patient was placed in dorsolithotomy position, prepped and draped for hysteroscopy. A bivalve speculum was placed in the vagina. The anterior lip of the cervix was grasped with a sharp-toothed tenaculum. The cervix was serially dilated with Hegar dilators. . A hysteroscope was placed into the endometrial cavity. The endometrial cavity was seen have a 3 cm endometrial polyp with irregular shape. There was moderate endometrial tissue. A Myosure was then inserted and the polyp was removed, in addition to removing the remainder of the endometrial tissue. The endometrial cavity was seen to be intact. The hysteroscope and Myosure were then removed. Endometrial curettage was done with a sharp curette. Endometrial tissue was sent to pathology. The sharp-toothed tenaculum was removed. There was no bleeding from the endometrial cavity or cervix. The anayeli ent was then placed supine and awakened and taken to the PACU. Postop condition: stable EBL: none Sponge and instruments counts were normal x 2 Complications: none
== END 2023-12-15 12:38 | disposition home or self-care (01) ==
PROVIDERS: PCP Registered Nurse; Visit Provider Obstetrics & Gynecology
PROC: 0UJD8ZZ Inspection of Uterus and Cervix, Via Natural or Artificial Opening Endoscopic (ICD-10-PCS; CPT 58555; principal; 2023-12-15 10:20)
PROC: (CPT 58558; 2023-12-15 10:20)
DX: R93.89 Abnormal findings on diagnostic imaging of other specified body structures (principal); N84.0 Polyp of corpus uteri; I10 Essential (primary) hypertension; K21.9 Gastro-esophageal reflux disease without esophagitis; E78.5 Hyperlipidemia, unspecified; F41.9 Anxiety disorder, unspecified
CPT/HCPCS: 58558; 36416; 82962; 88305; J1100; J1885; J2250; J2405; J2704; J3010; J7030

== ENCOUNTER → 2024-01-11 09:30 | Outpatient (BNVA) | payer MEDICARE, SELFPAY | PROVIDERS: PCP Registered Nurse; Visit Provider Registered Nurse | DX: R35.0 Frequency of micturition (principal); N39.0 Urinary tract infection, site not specified; E11.9 Type 2 diabetes mellitus without complications | CPT/HCPCS: 80053; 81000; 83036; 87077; 87086; 87184 ==

== ENCOUNTER → 2024-06-27 10:59 | Outpatient (BNVA) | payer MEDICARE, SELFPAY | PROVIDERS: PCP Registered Nurse; Visit Provider Obstetrics & Gynecology | DX: D25.9 Leiomyoma of uterus, unspecified (principal) | CPT/HCPCS: 76830 ==

== ENCOUNTER → 2024-07-07 17:58 | Outpatient (BNVA) | payer MEDICARE, SELFPAY | PROVIDERS: PCP Registered Nurse; Visit Provider Emergency Medicine | DX: R39.9 Unspecified symptoms and signs involving the genitourinary system (principal) | CPT/HCPCS: 81000; 87086 ==

== ENCOUNTER → 2024-09-13 09:59 | Outpatient (BNVA) | payer OTHER, SELFPAY | PROVIDERS: PCP Registered Nurse; Visit Provider Registered Nurse | DX: E11.9 Type 2 diabetes mellitus without complications (principal) | CPT/HCPCS: 80053; 82607; 83036 ==

== ENCOUNTER → 2024-12-17 09:11 | Outpatient (BNVA) | payer MEDICARE, SELFPAY | PROVIDERS: PCP Registered Nurse; Visit Provider Registered Nurse | DX: E11.9 Type 2 diabetes mellitus without complications (principal) | CPT/HCPCS: 80053; 81000; 83036 ==

== ENCOUNTER → 2025-02-21 08:27 | Outpatient (BNVA) | payer MEDICARE, SELFPAY | PROVIDERS: PCP Registered Nurse; Visit Provider Registered Nurse | DX: E11.9 Type 2 diabetes mellitus without complications (principal) | CPT/HCPCS: 80053 ==

== ENCOUNTER 2025-06-05 08:48 | Outpatient (CLI) | payer MEDICARE, SELFPAY ==
--- NOTE | 2025-06-05 09:30 | USR_ITS ---
PROCEDURE INFORMATION: Exam: US Duplex Lower Extremity Veins, Bilateral Exam date and time: 06/05/2025 9:16 AM Age: 70 years old Clinical indication: Other: Eval for reflux; Additional info: I87.2 - venous insufficiency (chronic) (peripheral) TECHNIQUE: Imaging protocol: Real-time duplex ultrasound of the bilateral extremities with 2-D hawkins scale, color Doppler flow and spectral waveform analysis including responses to compression and other maneuvers (when performed) with image documentation. Complete exam focused on the lower extremity veins. COMPARISON: No relevant prior studies available. FINDINGS: Iliac veins: Unremarkable. Normal flow. No acute or chronic thrombus. Common femoral veins: Normal. No visible acute or chronic thrombus. Normal compressibility and augmentation with calf compression. Superficial femoral veins: Normal. No visible acute or chronic thrombus. Normal compressibility and augmentation with calf compression. Profunda femoral veins: Normal. No visible acute or chronic thrombus. Normal compressibility and augmentation with calf compression. Popliteal veins: Normal. No visible acute or chronic thrombus. Normal compressibility and augmentation with calf compression. Saphenous veins: No visible acute or chronic thrombus. Normal compressibility and augmentation with calf compression. Posterior tibial veins: Normal. No visible acute or chronic thrombus. Normal compressibility . Anterior tibial veins: Normal. No visible acute or chronic thrombus. Normal compressibility. Peroneal veins: Normal. No visible acute or chronic thrombus. Normal compressibility . Other: No significant reflux was demonstrated during the examination. US/CV john dup angelique [facility] [id number] IMPRESSION: Unremarkable bilateral lower extremity venous sonogram no evidence of reflux or DVT.
== END 2025-06-05 08:49 | disposition home or self-care (01) ==
PROVIDERS: PCP Registered Nurse; Visit Provider Registered Nurse
DX: I87.2 Venous insufficiency (chronic) (peripheral) (principal)
CPT/HCPCS: 93970

== ENCOUNTER → 2025-07-18 08:57 | Outpatient (BNVA) | payer MEDICARE, SELFPAY | PROVIDERS: PCP Registered Nurse; Visit Provider Registered Nurse | DX: E11.9 Type 2 diabetes mellitus without complications (principal) | CPT/HCPCS: 80048; 83036 ==

== ENCOUNTER → 2025-10-14 11:23 | Outpatient (BNVA) | payer MEDICARE, SELFPAY | PROVIDERS: PCP Registered Nurse; Visit Provider Registered Nurse | DX: E11.9 Type 2 diabetes mellitus without complications (principal); R35.0 Frequency of micturition; N39.0 Urinary tract infection, site not specified | CPT/HCPCS: 81000; 83036; 87086 ==

== ENCOUNTER → 2025-10-19 12:53 | Outpatient (BNVA) | payer MEDICARE, SELFPAY | PROVIDERS: PCP Registered Nurse | DX: R39.9 Unspecified symptoms and signs involving the genitourinary system (principal) | CPT/HCPCS: 81000 ==

== ENCOUNTER → 2025-10-28 08:15 | Outpatient (BNVA) | payer MEDICARE, SELFPAY | PROVIDERS: PCP Registered Nurse; Visit Provider Surgery | DX: R13.10 Dysphagia, unspecified (principal) | CPT/HCPCS: 99204 ==

== ENCOUNTER 2025-11-05 08:59 | Outpatient (CLI) | payer MEDICARE, SELFPAY ==
--- NOTE | 2025-11-05 10:00 | FL_ITS ---
WS: [id number] FL barium swallow modifd [id number] REASON FOR EXAM: Choking and passing out. FLUOROSCOPY TIME: 2min [id number] # OF SPOT FILMS: None TECHNIQUE: The procedure was supervised by the speech therapy department. Patient was examined in the sitting upright lateral projection. The swallowing of barium of varying consistencies was monitored fluoroscopically and video recorded. FINDINGS: No aspiration or laryngeal vestibule penetration by liquid contrast. 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 Barium tablet passed the cricopharyngeal impingement without delay. Passage into the stomach from a hiatal hernia was delayed. FL/FL barium swallow modifd [id number] IMPRESSION: No aspiration or laryngeal vestibule penetration. 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 A detailed report of the swallowing will be rendered by the speech therapy depa rtment. Delay in passage of the barium tablet from a hiatal hernia into the stomach.
== END 2025-11-05 09:00 | disposition home or self-care (01) ==
LOC: RAD 09:02
PROVIDERS: PCP Registered Nurse; Visit Provider Surgery
DX: R13.10 Dysphagia, unspecified (principal); K22.89 Other specified disease of esophagus
CPT/HCPCS: 74230; 92611

== ENCOUNTER 2025-11-06 11:37 | Outpatient (CLI) | payer MEDICARE, SELFPAY ==
--- NOTE | 2025-11-06 11:40 | MM_ITS ---
WS: [id number] BILATERAL 3D TOMOSYNTHESIS DIGITAL SCREENING MAMMOGRAPHY WITH CAD CLINICAL INFORMATION: Z12.39 - Encounter for other screening for malignant neop... HISTORY: Screening mammogram. No current complaints. COMPARISON: 2022 TECHNIQUE: Bilateral CC and MLO views. FINDINGS: Scattered fibroglandular densities bilaterally. No suspicious focal mass, asymmetry, calcifications, or architectural distortion. No evidence of malignancy. Vascular calcification MM/MM scr BI tomosynthesis [id number] IMPRESSION: DENSITY: There are scattered areas of fibroglandular density. BI-RADS: 2 - Benign. FOLLOW UP: 1 Year Follow-up Recommend return to annual screening mammography.
== END 2025-11-06 11:38 | disposition home or self-care (01) ==
LOC: RAD 11:38
PROVIDERS: PCP Registered Nurse; Visit Provider Obstetrics & Gynecology
DX: Z12.31 Encounter for screening mammogram for malignant neoplasm of breast (principal); R92.323 Mammographic fibroglandular density, bilateral breasts; R92.1 Mammographic calcification found on diagnostic imaging of breast
CPT/HCPCS: 77063; 77067

== ENCOUNTER 2025-11-14 08:02 | Day surgery (SDC) | payer MEDICARE, SELFPAY ==
[2025-11-14 08:28] VITALS: BP 155/74; PULSE 70; RESP 18; TEMP 36.4; O2SAT 96; BMI 27.4
--- NOTE | 2025-11-14 08:32 | W.PM.OPSUD ---
Surgery/Procedure H&P Update DATE OF PROCEDURE: November 14, 2025 DATE H&P PERFORMED: 10/28/25 H&P UPDATE INFORMATION: I have reviewed H&P completed within last 30 days, I have examined patient prior to procedure, No changes to prior documentation, H&P is in [facility] EMR on date indicated and Risks and benefits of the procedure reviewed PLANNED PROCEDURE: Operation Date: 11/14/25 09:55 Proposed Procedures p EGD w/ Dilation EGD Balloon Dilation(Not Applicable) - Wiley Edwards MD
--- NOTE | 2025-11-14 09:03 | ANES.PREANE2 ---
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, no other issues Was Beta Rod taken within 24 hours: N/A Was Clonidine taken within 24 hours: N/A Last intake: Intake Last Liquid Date 11/13/25 Last Liquid Time 22:00 Last Solid Date 11/13/25 Last Solid Time 16:00 Social No alcohol and No tobacco Exam alert, oriented x 3, clear to auscultation bilaterally and regular rate & rhythm Airway Submandibular: within normal limits Cervical ROM: within normal limits Mallampati: Class III Dentition: partials History/ROS No significant history except as noted and No significant complaints Pulmonary Asthma CV/HEM Hypertension None reported Hepatic None reported GI Gastroesophageal Reflux Disease and Hiatal Hernia Dysphagia Metabolic Diabetes Mellitus and Hyperlipidemia Musc/skel Lumbar surgery 2-3 years ago Neuropsych Anxiety and Depression Anesthetic Plan ASA status: 2 Anesthesia: Anesthesia Evaluation, General and MAC Risk of > 500 ml blood loss (7ml/kg in children): No Medications/Allergies Home Medications ?Medication ?Instructions ?Recorded ?Confirmed ?Last Taken ?Type gabapentin 300 mg capsule 300 mg PO TID PRN Pain 07/29/22 11/11/25 Unknown History cetirizine 10 mg tablet (Zyrtec) 10 mg PO DAILY PRN Allergy Symptoms 04/28/23 11/11/25 11/13/25 History buspirone 5 mg tablet 5 mg PO BID PRN anxiety 30 days 03/18/25 11/11/25 11/13/25 Rx #45 tabs venlafaxine 75 mg capsule,extended 75 mg PO QAM 90 days #90 caps 03/18/25 11/11/25 11/13/25 Rx release 24 hr blood-glucose sensor (FreeStyle #1 ea 05/09/25 10/28/25 Unknown Rx Kendall 3 Plus Sensor device) blood-glucose,offset lithographic press operator,cont #1 ea 05/09/25 10/28/25 Unknown Rx (FreeStyle [place] 3 [place]) amlodipine 10 mg tablet 10 mg PO QAM 100 days #100 tabs 07/18/25 11/11/25 11/13/25 Rx dapagliflozin propanediol 10 mg 10 mg PO DAILY 90 days #90 tabs 10/14/25 11/11/25 11/13/25 Rx tablet (Farxiga) pantoprazole 20 mg tablet,delayed 20 mg PO DAILY 90 days #90 tabs 10/14/25 11/11/25 11/13/25 Rx release metformin 500 mg tablet 500 mg PO BID 30 days #60 tabs 10/15/25 11/11/25 11/11/25 Rx blood sugar diagnostic (Accu-Chek #100 ea 10/21/25 10/28/25 Unknown Rx Guide test strips) lisinopril 30 mg tablet 30 mg PO DAILY 11/11/25 11/11/25 11/13/25 History rosuvastatin 10 mg tablet 10 mg PO DAILY 11/11/25 11/11/25 11/13/25 History Allergies Allergy/AdvReac Type Severity Reaction Status Date / Time No Known Allergies Allergy Verified 11/11/25 09:43 Current Medications Generic Name Dose Route Start Last Admin Trade Name Freq PRN Reason Stop Dose Admin Sodium Chloride 1,000 mls @ 15 mls/hr 11/14/25 08:10 11/14/25 08:38 Sodium Chloride 0.9% IV 11/15/25 08:09 15 mls/hr .Q24H PRN Administration COLONOSCOPY FLUIDS PFSH Anesthesia Medical History (Updated 10/28/25 @ 08:51 by Wiley Edwards MD) Psychiatric care Post-menopausal Degenerative lumbar spinal stenosis Transitional vertebrae MDD (major depressive disorder) Anxiety disorder, unspecified Essential hypertension Intervertebral disc disorder with radiculopathy of lumbosacral region Surgical History History of arthroscopy of right shoulder Family History Mother Colon cancer Sister Colon cancer Ovarian cancer Other CAD (coronary artery disease) Myocardial infarction Denies family history of Diabetes Hyperlipidemia Hypertension Stroke Social History Smoking and tobacco/nicotine status: never used tobacco/nicotine Second hand smoke exposure: Yes Alcohol intake: never Substance/Drug Use: never Adopted: No Caregiver/support person: No Lives independently: Yes Marital status: Sexually active: Yes Do you think of yourself as: Straight/Heterosexual Current gender identity: Female Data Anesthesia Cardiac Studies: Sestamibi Stress Test (Cardiology) 08/11/20
[2025-11-14 09:57] VITALS: BP 140/76; PULSE 97; RESP 16; TEMP 36.5; O2SAT 97
[2025-11-14 10:10] VITALS: BP 139/63; PULSE 71; RESP 18; O2SAT 96
[2025-11-14 10:20] VITALS: BP 141/79; PULSE 75; RESP 18; O2SAT 96
--- NOTE | 2025-11-15 10:34 | ANE.PACU2 ---
Inpatient post-anesthesia follow up: Airway intact: Yes Vital signs: Temperature 97.7 F Pulse Rate 75 Respiratory Rate 18 Blood Pressure 141/79 Pulse Oximetry 96 Oxygen Delivery Me thod Room Air Oxygen Flow Rate Fraction of Inspir ed Oxygen Hydration adequate: Yes Nausea and vomiting: No Pain level: 1 Mental status: Baseline
== END 2025-11-14 10:34 | disposition home or self-care (01) ==
PROVIDERS: PCP Registered Nurse; Visit Provider Surgery
DX: R13.10 Dysphagia, unspecified (principal); K44.9 Diaphragmatic hernia without obstruction or gangrene; K29.80 Duodenitis without bleeding; K29.50 Unspecified chronic gastritis without bleeding; I10 Essential (primary) hypertension; K21.9 Gastro-esophageal reflux disease without esophagitis; E11.9 Type 2 diabetes mellitus without complications; E78.5 Hyperlipidemia, unspecified; F41.8 Other specified anxiety disorders; Z79.84 Long term (current) use of oral hypoglycemic drugs; F32.9 Major depressive disorder, single episode, unspecified; Z80.0 Family history of malignant neoplasm of digestive organs; Z80.41 Family history of malignant neoplasm of ovary
CPT/HCPCS: 36416; 43239; 82962; 88305; 88342; J2704; J3490; J7030; J9999